=== PATIENT | male | born 1975 | race African-American/Black ===

== ENCOUNTER 2019-01-22 06:43 | Inpatient (IN) | payer OTHER ==
[~2019-01-22] VITALS: Ht 175.3 cm; Wt 97.1 kg
[2019-01-22] VITALS (12 sets, daily range): BP systolic 158–208; BP diastolic 119–153
[2019-01-22] MEDS ORDERED: ATORVASTATIN CA20 MG ORAL (06:51)
[2019-01-22] MEDS ORDERED: LISINOPRIL5 MG ORAL (06:51)
[2019-01-22] MEDS ORDERED: CARVEDILOL3.125 MG ORAL (06:51)
[2019-01-22] MEDS ORDERED: ASPIR 8181 MG ORAL (06:52)
[2019-01-22] MEDS ORDERED: FUROSEMIDE20 M1 ORAL (06:53)
--- NOTE | 2019-01-22 06:54 | NUR ---
ED Nurse Note: PT AMBULATED TO ED FROM HOME C/O OF SOB FOR 2 WEEKS PER PT HE HAS HISTORY OF CHF DENIES COPD AND ASTHMA. PER PT THESE SYMPTOMS OCCURED WHEN HE FIRST GOT DIAGNOSED WITH CHF. PT IS ON ROOM AIR 99%. ABLE TO SPEAK COMPLETE SENTENCE WITHOUT RUNNING OUT OF BREATH
--- NOTE | 2019-01-22 06:59 | Emergency Room Report ---
History of Present Illness General Chief Complaint: Upper Respiratory Illness Source: Patient Present Illness HPI Patient presents with complaints of shortness of breath Reports that he has been diagnosed with CHF and it feels fairly similar to that Patient has been on diuretics Denies any change in dosage patient also taking blood pressure medication Short of breath is worse with laying flat also with exertion Denies any swelling denies any chest pain denies any vomiting or diarrhea denies any recent travel Allergies: Coded Allergies: No Known Allergies (Unverified , 01/22/19) Patient History Past Medical History: see triage record Pertinent Family History: none Reviewed Nursing Documentation: PMH: Agreed; PSxH: Agreed Nursing Documentation-PM Past Medical History: No History, Except For Hx Hypertension: Yes Review of Systems All Other Systems: negative except mentioned in HPI Physical Exam Vital Signs Date Time Temp Pulse Resp B/P (MAP) Pulse Ox O2 Delivery O2 Flow Rate FiO2 01/22/19 06:44 97.9 108 16 190/151 98 Room Air Sp02 EP Interpretation: reviewed, normal General Appearance: no apparent distress Head: normocephalic, atraumatic Eyes: bilateral eye PERRL, bilateral eye EOMI ENT: hearing grossly normal, normal pharynx, TMs + canals normal, uvula midline Neck: full range of motion, supple, no meningismus, no bony tend Respiratory: no respiratory distress, no retraction, no accessory muscle use, crackles - Bilaterally Cardiovascular #1: normal peripheral pulses, regular rate, rhythm, no edema, no gallop, no JVD, no murmur Gastrointestinal: normal bowel sounds, non tender, soft, no mass, no organomegaly, non-distended, no guarding, no hernia, no pulsatile mass, no rebound Genitourinary: no CVA tenderness Musculoskeletal: normal inspection Neurologic: oriented x3, responsive, email campaign specialist III-XII nml as tested, motor strength/ tone normal, sensory intact Psychiatric: mood/affect normal Skin: normal color, no rash, warm/dry, palpation normal Lymphatic: normal inspection, no adenopathy Procedures Critical Care Time Critical Care Time 50 minutes secondary to concern for cardiac pathology, not including any procedural time Medical Decision Making Diagnostic Impression: Primary Impression: CHF (congestive heart failure) Additional Impression: Elevated troponin I level ER Course Patient is a fairly complex patient with multiple differential to consideration including but not limited to cardiac cardiopulmonary and vascular emergencies Patient's clinical exam is consistent with acute CHF Patient initiated on diuretics nitroglycerin patient's troponin is also elevated Patient also requiring acute hypertensive intervention Initial discussion is made regarding transfer however secondary to significant delay Patient was cleared for admission here A repeat troponin shows minimal decrease and does not appear to be increasing from previous And therefore patient is stable for further telemetry care Labs Test 01/22/19 07:03 01/22/19 07:23 01/22/19 10:05 White Blood Count 9.4 K/UL (4.8-10.8) Red Blood Count 5.29 M/UL (4.70-6.10) Hemoglobin 16.5 G/DL (14.2-18.0) Hematocrit 47.6 % (42.0-52.0) Mean Corpuscular Volume 90 FL (80-99) Mean Corpuscular Hemoglobin 31.1 PG (27.0-31.0) Mean Corpuscular Hemoglobin Concent 34.5 G/DL (32.0-36.0) Red Cell Distribution Width 13.1 % (11.6-14.8) Platelet Count 244 K/UL (150-450) Mean Platelet Volume 6.8 FL (6.5-10.1) Neutrophils (%) (Auto) 63.2 % (45.0-75.0) Lymphocytes (%) (Auto) 28.4 % (20.0-45.0) Monocytes (%) (Auto) 4.7 % (1.0-10.0) Eosinophils (%) (Auto) 2.3 % (0.0-3.0) Basophils (%) (Auto) 1.5 % (0.0-2.0) Sodium Level 139 MMOL/L (136-145) Potassium Level 4.4 MMOL/L (3.5-5.1) Chloride Level 104 MMOL/L (98-107) Carbon Dioxide Level 24 MMOL/L (21-32) Anion Gap 11 mmol/L (5-15) Blood Urea Nitrogen 26 mg/dL (7-18) Creatinine 2.0 MG/DL (0.55-1.30) Estimat Glomerular Filtration Rate 44.2 mL/min (>60) Glucose Level 115 MG/DL (74-106) Calcium Level 9.0 MG/DL (8.5-10.1) Total Bilirubin 0.8 MG/DL (0.2-1.0) Aspartate Amino Transf (AST/SGOT) 43 U/L (15-37) Alanine Aminotransferase (ALT/SGPT) 75 U/L (12-78) Alkaline Phosphatase 99 U/L (46-116) Total Creatine Kinase 177 U/L (26-308) Creatine Kinase MB 3.6 NG/ML (0.0-3.6) Creatine Kinase MB Relative Index 2.0 Troponin I 0.245 ng/mL (0.000-0.056) 0.209 ng/mL (0.000-0.056) Pro-B-Type Natriuretic Peptide 4404 pg/mL (0-125) Total Protein 6.7 G/DL (6.4-8.2) Albumin 3.3 G/DL (3.4-5.0) Globulin 3.4 g/dL Albumin/Globulin Ratio 1.0 (1.0-2.7) Lipase 151 U/L (73-393) Urine Opiates Screen Negative (NEGATIVE) Urine Barbiturates Screen Negative (NEGATIVE) Phencyclidine (PCP) Screen Negative (NEGATIVE) Urine Amphetamines Screen Negative (NEGATIVE) Urine Benzodiazepines Screen Negative (NEGATIVE) Urine Cocaine Screen Negative (NEGATIVE) Urine Marijuana (THC) Screen Positive (NEGATIVE) EKG Diagnostic Results Rate: normal Rhythm: other ST Segments: other - Nonspecific ST and T-wave changes Rhythm Strip Diag. Results EP Interpretation: yes Rate: 66 Rhythm: NSR, no PVC's, no ectopy Chest X-Ray Diagnostic Results Chest X-Ray Diagnostic Results : Chest X-Ray Ordered: Yes # of Views/Limited/Complete: 1 View Indication: Shortness of Breath EP Interpretation: Yes Interpretation: no consolidation, no effusion, no pneumothorax, other - Cardiomegaly, Pulmonary congestion congestion Impression: Other - Acute CHF Electronically Signed by: Jaspreet Edwards DO Last Vital Signs Date Time Temp Pulse Resp B/P (MAP) Pulse Ox O2 Delivery O2 Flow Rate FiO2 01/22/19 06:44 97.9 108 16 190/151 98 Room Air Status: improved Disposition: ADMITTED INPATIENT Condition: Serious Jaspreet Edwards DO Jan 22, 2019 06:59
[2019-01-22] MEDS ORDERED: Nitroglycerin 2% oint pkt TOPIC ONE (07:00)
--- NOTE | 2019-01-22 07:12 | NUR ---
ED Nurse Note: BLOOD SPECIMEN SENT TO LAB
--- NOTE | 2019-01-22 07:13 | NUR ---
HAND-OFF: Report given to ANANYA CHRISTIANSON.
--- NOTE | 2019-01-22 07:23 | NUR ---
ED Nurse Note: X-ray tech at bedside for imaging.
[2019-01-22 07:25] LABS: BASOPHILS % (AUTO) 1.5 % (0.0-2.0); EOSINOPHILS % (AUTO) 2.3 % (0.0-3.0); HEMATOCRIT 47.6 % (42.0-52.0); HEMOGLOBIN 16.5 G/DL (14.2-18.0); LYMPHOCYTES % (AUTO) 28.4 % (20.0-45.0); MEAN CORPUSCULAR VOLUME 90 FL (80-99); MONOCYTES % (AUTO) 4.7 % (1.0-10.0); NEUTROPHILS % (AUTO) 63.2 % (45.0-75.0); PLATELET COUNT 244 K/UL (150-450); RED BLOOD COUNT 5.29 M/UL (4.70-6.10); RED CELL DISTRIBUTION WIDTH 13.1 % (11.6-14.8); WHITE BLOOD COUNT 9.4 K/UL (4.8-10.8)
[2019-01-22 07:41] LABS: ANION GAP 11 mmol/L (5-15); BLOOD UREA NITROGEN 26 mg/dL (7-18); CARBON DIOXIDE 24 MMOL/L (21-32); CHLORIDE 104 MMOL/L (98-107); POTASSIUM 4.4 MMOL/L (3.5-5.1); SODIUM 139 MMOL/L (136-145)
[2019-01-22 07:53] LABS: ALANINE AMINOTRANSFERASE 75 U/L (12-78); ALBUMIN 3.3 G/DL (3.4-5.0); ALKALINE PHOSPHATASE 99 U/L (46-116); ASPARTATE AMINO TRANSFERASE 43 U/L (15-37); BILIRUBIN,TOTAL 0.8 MG/DL (0.2-1.0); CKMB 3.6 NG/ML (0.0-3.6); CREATINE KINASE 177 U/L (26-308)
--- NOTE | 2019-01-22 08:00 | Diagnostic Imaging Report ---
EXAM: XR Chest, 1 View CLINICAL HISTORY: SOB TECHNIQUE: Frontal view of the chest. COMPARISON: No relevant prior studies available. FINDINGS: Lungs: Slight prominence of the central lung markings. This may reflect mild congestion. Mild streaky density in the right lung base. Pleural space: No large layering effusion. No pneumothorax. Heart: Cardiovascular silhouette, mildly enlarged and accentuated by low lung volume. Mediastinum: Unremarkable. Bones/joints: Unremarkable. Vasculature: Mildly tortuous thoracic aorta. IMPRESSION: Mild cardiomegaly. Mild vascular congestion suspected. Mild right basilar atelectasis.
[2019-01-22] MEDS: Metoprolol 5mg/5ml Inj IVP SCH ×3 (08:58→09:42)
--- NOTE | 2019-01-22 10:08 | NUR ---
ED Nurse Note: Second Troponin drawn and sent to lab.
[2019-01-22] MEDS ORDERED: Morphine Sulfate 4mg/ml Inj (IV USE ONLY) IVP ONE (10:45)
--- NOTE | 2019-01-22 11:58 | NUR ---
ED Nurse Note: Notified Dr. Edwards regarding pt.'s bp of 167/134. Per Dr. Edwards, pt. is ok to go up for admission
--- NOTE | 2019-01-22 12:11 | NUR ---
ED Nurse Note: telephone report given to ANANYA Ornelas. transported pt. to Tele with housekeeper on attached for monitoring. All belongings were endorsed
--- NOTE | 2019-01-22 12:14 | NUR ---
NURSE NOTES: Pt admitted from ED via gurney with RN and networking technology instructor. Received report and inventory list from Jeyson HARE @ED at bedside. Pt AOX4 and walks steady. No skin breakdown noted. IV site on LAC 20G SL with patent intact. Gave pt floor orientation. Bed in lowest position locked. Call light in easy reach. No c/o pain. No signs of distress noted. Continent of both bladder and bowel. Will follow up with MD for admission order.
[2019-01-22] MEDS ORDERED: ATORVASTATIN CA40 MG ORAL (12:58)
[2019-01-22] MEDS ORDERED: CARVEDILOL6.25 MG ORAL (12:58)
[2019-01-22] MEDS ORDERED: LISINOPRIL20 MG ORAL (12:58)
[2019-01-22] MEDS ORDERED: FUROSEMIDE40 MG ORAL (12:58)
--- NOTE | 2019-01-22 12:58 | NUR ---
NURSE NOTES: Per pt, he couldn't remember the dosage or frequency of his medications but knows the medications he's taking - aspirin, atorvastatin, carvedilol, and lisinopril. Pt provided address and contact of [facility] pharmacy he goes to (on and - [phone]). RN spoke with Rachel pharmacist from [facility] who confirmed that pt is on aspirin 81 mg PO daily, atorvastatin 40 mg PO daily, carvedilol 6.25 mg PO BID with food, furosemide 40 mg PO every other day, and lisinopril 30 mg PO daily. RN will endorse to Dr. Lambert to obtain order to continue or discontinue the following meds.
--- NOTE | 2019-01-22 13:40 | NUR ---
NURSE NOTES: All admission order verified with Dr. Lambert.
[2019-01-22] MEDS ORDERED: Nitroglycerin Subl 0.4mg tab SL PRN (13:53)
--- NOTE | 2019-01-22 14:56 | NUR ---
CASE MANAGEMENT: INITIAL REVIEW 01/22/2019 43 YO M PRESENTED TO OUR ED FROM HOME CC: URI PMHx: HTN. SI:HYPERTENSIVE MALIGNANCY. ACUTE CHF. T 97.9 HR 108 RR 16 B/P 190/151 SATS 98% ON RA BUN 26 CR 2 GLU 115 AST 43 TROPONIN 0.245 AND 0.209 BNP 4404 U TOX (+THC) IS: LASIX IV X1 NITRO TOP X1 LOPRESSOR IV X1 MORPHINE IV X1 ZOFRAN IV X1 PATIENT TO BE DISCHARGED TO HOME ONCE MEDICALLY CLEARED. PLAN OF CARE: 2D ECHO CARDIAC DIET Addendum: 01/22/19 at 2038 by Mayelin Montgomery CM INTERQUAL MET
--- NOTE | 2019-01-22 15:35 | NUR ---
NURSE NOTES: Upon admission, pt's BP was 182/137, with HR of 97. Endorsed to Dr. Lambert, who ordered for clonidine 0.1 mg PO. Upon reassessment, pt's BP was 192/153 with pulse of 100. RN left message with cardio consult Dr. Dove for further orders. No new orders given. Will continue to monitor.
--- NOTE | 2019-01-22 16:09 | NUR ---
NURSE NOTES: Per Dr. Dove, start amlodine 5 mg PO daily, Hydrochlorothiazide 25 mg PO qid, clonidine 0.1 mg PO qid PRN for SBP above 160. Will carry out orders and monitor pt.
--- NOTE | 2019-01-22 16:40 | NUR ---
NURSE NOTES: Informed Dr. Dove of 2d echo result of 15% with mild left ventricular hypertrophy. Per Dr. Dove, d/c HCTZ and amlodipine and change to Carvedilol 3.125 mg BID and hydralazine 50 mg TID.
--- NOTE | 2019-01-22 17:00 | NUR ---
NURSE NOTES: Endorsed to Dr. Dove that pt is also scheduled to take metoprolol 50 mg PO q12 hr starting later tonight. Per Dr. Dove, d/c metoprolol.
[2019-01-22] MEDS: HydrALAZINE 50mg tab ORAL SCH (17:12)
--- NOTE | 2019-01-22 18:38 | NUR ---
NURSE NOTES: RN reassessed BP after Hydralazine administration - BP: 177/138, P:101. Clonidine 0.1mg PRN not scheduled until 8pm. Endorsed Dr. Dove no new orders given at this time.
--- NOTE | 2019-01-22 19:10 | NUR ---
HAND-OFF: Report given to Veronica Jaramillo RN. No acute s/s of distress.
--- NOTE | 2019-01-22 19:12 | NUR ---
NURSE NOTES: RECEIVED PT AT BEDSIDE. PT IS X4, ABLE TO MAKE NEEDS KNOWN. COMPLAINING OF HEAD PAIN. RN REPORTS HIGH BP >160 SYS THROUGH DAY. MD IS AWARE. IV SITE LAC 18G, ASYMOPTOMATIC. BED IS LOCKED IN LOWEST POSITION, SR X3, CALL [place] W/ IN REACH, BED ALARM ON. PT IS ABULATORY GAIT STEADY. WILL CONTINUE TO MONITOR AND FOLLOW W/ PLAN OF CARE.
[2019-01-22] MEDS: Heparin 5000 units/ml inj SUBQ SCH (20:12)
[2019-01-22] MEDS: Morphine Sulfate 2mg/ml Inj(IV/IM USE ONLY) IVP PRN (20:13)
[2019-01-22] MEDS ORDERED: Metoprolol Tartrate 50mg tab ORAL SCH (21:00)
--- NOTE | 2019-01-22 23:51 | Cardiology Progress Note ---
Assessment/Plan Assessment/Plan The patient is seen and examined, full consult note is dictated. Objective Last 24 Hour Vital Signs Date Time Temp Pulse Resp B/P (MAP) Pulse Ox O2 Delivery O2 Flow Rate FiO2 01/22/19 21:42 174/129 01/22/19 21:00 Room Air 01/22/19 20:11 80 176/80 01/22/19 20:00 99 01/22/19 20:00 98.2 105 18 174/129 (144) 97 01/22/19 18:22 97.8 101 18 177/133 (148) 96 01/22/19 17:12 187/147 01/22/19 17:10 100 187/147 (160) 01/22/19 16:32 100 192/153 01/22/19 16:00 98.5 100 19 192/153 (166) 98 01/22/19 15:35 99 01/22/19 14:20 176/134 01/22/19 14:17 98.0 175/134 (148) 01/22/19 13:09 Room Air 01/22/19 12:17 93 01/22/19 12:08 97.9 93 20 167/134 100 Room Air 01/22/19 11:56 97.9 93 20 167/134 100 Room Air 01/22/19 11:09 97.9 01/22/19 10:57 93 20 158/119 98 Room Air 01/22/19 10:41 172/121 01/22/19 09:43 97.9 94 20 169/135 98 Room Air 01/22/19 09:42 94 169/135 01/22/19 09:10 96 169/142 01/22/19 08:58 106 181/144 01/22/19 08:16 102 175/140 01/22/19 07:45 191/149 01/22/19 07:11 205/144 01/22/19 07:06 109 19 Room Air 01/22/19 07:06 97.9 109 19 208/144 99 Room Air 01/22/19 06:44 97.9 108 16 190/151 98 Room Air Laboratory Tests Test 01/22/19 07:03 01/22/19 07:23 01/22/19 10:05 White Blood Count 9.4 K/UL (4.8-10.8) Red Blood Count 5.29 M/UL (4.70-6.10) Hemoglobin 16.5 G/DL (14.2-18.0) Hematocrit 47.6 % (42.0-52.0) Mean Corpuscular Volume 90 FL (80-99) Mean Corpuscular Hemoglobin 31.1 PG (27.0-31.0) H Mean Corpuscular Hemoglobin Concent 34.5 G/DL (32.0-36.0) Red Cell Distribution Width 13.1 % (11.6-14.8) Platelet Count 244 K/UL (150-450) Mean Platelet Volume 6.8 FL (6.5-10.1) Neutrophils (%) (Auto) 63.2 % (45.0-75.0) Lymphocytes (%) (Auto) 28.4 % (20.0-45.0) Monocytes (%) (Auto) 4.7 % (1.0-10.0) Eosinophils (%) (Auto) 2.3 % (0.0-3.0) Basophils (%) (Auto) 1.5 % (0.0-2.0) Sodium Level 139 MMOL/L (136-145) Potassium Level 4.4 MMOL/L (3.5-5.1) Chloride Level 104 MMOL/L (98-107) Carbon Dioxide Level 24 MMOL/L (21-32) Anion Gap 11 mmol/L (5-15) Blood Urea Nitrogen 26 mg/dL (7-18) H Creatinine 2.0 MG/DL (0.55-1.30) H Estimat Glomerular Filtration Rate 44.2 mL/min (>60) Glucose Level 115 MG/DL (74-106) H Calcium Level 9.0 MG/DL (8.5-10.1) Total Bilirubin 0.8 MG/DL (0.2-1.0) Aspartate Amino Transf (AST/SGOT) 43 U/L (15-37) H Alanine Aminotransferase (ALT/SGPT) 75 U/L (12-78) Alkaline Phosphatase 99 U/L (46-116) Total Creatine Kinase 177 U/L (26-308) Creatine Kinase MB 3.6 NG/ML (0.0-3.6) Creatine Kinase MB Relative Index 2.0 Troponin I 0.245 ng/mL (0.000-0.056) 0.209 ng/mL (0.000-0.056) Pro-B-Type Natriuretic Peptide 4404 pg/mL (0-125) H Total Protein 6.7 G/DL (6.4-8.2) Albumin 3.3 G/DL (3.4-5.0) L Globulin 3.4 g/dL Albumin/Globulin Ratio 1.0 (1.0-2.7) Lipase 151 U/L (73-393) Urine Opiates Screen Negative (NEGATIVE) Urine Barbiturates Screen Negative (NEGATIVE) Phencyclidine (PCP) Screen Negative (NEGATIVE) Urine Amphetamines Screen Negative (NEGATIVE) Urine Benzodiazepines Screen Negative (NEGATIVE) Urine Cocaine Screen Negative (NEGATIVE) Urine Marijuana (THC) Screen Positive (NEGATIVE) H Renato Dove MD Jan 22, 2019 23:51
[2019-01-23] VITALS (7 sets, daily range): BP systolic 147–177; BP diastolic 113–134
--- NOTE | 2019-01-23 01:16 | NUR ---
NURSE NOTES: PAGED DR MARTINEZ REGARDING BP, AWAITING RESPONSE. PT 2000 VITAL SIGNS 174/129 105 HR; GAVE COREG 3.125, MORPHINE 1 MG, AND CLONIDINE 0.1 MG. 0000 VITAL SIGNS 177/123 HR 102; NO OTHER PRN MEDICATIONS AVAILABLE. PT IS ASYMPTOMATIC, SLEEPING IN BED. WILL FOLLOW UP. WILL CONTINUE TO MONITOR AND FOLLOW W/ PLAN OF CARE.
--- NOTE | 2019-01-23 01:45 | NUR ---
NURSE NOTES: SPOKE W/ DR. MARTINEZ REGARDING HIGH BP. ADDED MORE BP MEDS, AND INCREASED CORE. SEE EMAR. WILL CONTINUE TO MONITOR AND FOLLOW W/ PLAN OF CARE.
[2019-01-23] MEDS: Spironolactone 25mg tab ORAL SCH (02:22)
--- NOTE | 2019-01-23 06:45 | Consultation ---
DATE OF CONSULTATION: 01/22/2019 CARDIOLOGY CONSULTATION CONSULTING PHYSICIAN: Renato Dove M.D. REFERRING PHYSICIAN: Jc Lambert M.D. REASON FOR CONSULTATION: Management of acute heart failure. HISTORY OF PRESENT ILLNESS: The patient is a very unfortunate 43-year-old gentleman with newly diagnosed congestive heart failure, who presents to the hospital with a progressive worsening of shortness of breath despite being on diuretics and no change of his home medication. The patient has been placed on beta blockers, furosemide, and lisinopril in the outpatient setting. He was started on carvedilol, furosemide, and lisinopril in the outpatient setting. Apart from the heart failure, his cardiovascular history is significant for hypertension. At the time of arrival to the hospital, blood pressure was 190/151 mmHg and pulse of 108. The patient had a 2D echocardiography earlier today which revealed a global left ventricular hypokinesia with associated mild left ventricular enlargement and left ventricular ejection fraction of approximately 15%. The patient also showed elevated right atrial pressure around 15 mmHg as well as [id number] mitral regurgitation and right ventricular systolic pressure was measured at 30 mmHg. He also demonstrated moderate pulmonary hypertension. Upon arrival to the hospital, the patient underwent laboratory workup, which revealed elevation of troponin I level at 0.245 as well as a proBNP of 4404. Chest x-ray was significant for cardiomegaly and pulmonary vascular congestion. The patient was admitted to telemetry for further evaluation and management, acute heart failure, and accelerated hypertension emergency. Cardiology consultation was made at the request of Dr. Lambert to address both above conditions. PAST MEDICAL HISTORY: Congestive heart failure and hypertension. FAMILY HISTORY: No premature coronary artery disease in first-degree relatives. ALLERGIES: No known drug allergies. SOCIAL HISTORY: Denies any tobacco, alcohol, or illicit drug use. MEDICATIONS: List of medication includes lisinopril 30 mg p.o. daily, furosemide 40 mg p.o. every other day, carvedilol 6.25 mg q.12 h., atorvastatin 40 mg p.o. daily, aspirin 81 mg p.o. daily. REVIEW OF SYSTEMS: HEENT: Denies any headache, diplopia, or blurred vision. CONSTITUTIONAL: Denies any fever, chills, night sweats, or weight loss. CARDIOVASCULAR: Complains of shortness of breath with exertion. Denies any chest pain at this time. Denies any PND or orthopnea. No leg edema. PULMONARY: Denies any cough, wheezing, or hemoptysis. GASTROINTESTINAL: Denies any nausea, vomiting, diarrhea, constipation, abdominal pain, or GI bleed. GENITOURINARY: Denies any hematuria, dysuria, or incontinence. NEUROLOGIC: Denies any motor dysfunction, sensory deficit, or altered speech. PHYSICAL EXAMINATION: VITAL SIGNS: Blood pressure was 190/151, pulse of 108, respirations of 16, O2 saturation 98% on room air, and temperature 97.9 degrees Fahrenheit. GENERAL: The patient is a very unfortunate 43-year-old gentleman, in no apparent respiratory distress. HEENT: Atraumatic and normocephalic. Anicteric. Pupils are equal, round, and reactive to light and accommodation. Extraocular muscles are intact. NECK: JVP is less than 5 cm. No carotid bruit. Carotid upstroke is 2+ bilaterally. CARDIOVASCULAR: Normal S1, S2. Regular rate and rhythm. No murmurs, gallops, or rubs. PMI is at fourth intercostal space at the midclavicular line. LUNGS: Bibasilar crackles. Otherwise, no rhonchi. ABDOMEN: Soft, nontender, and nondistended. No hepatosplenomegaly. Positive bowel sounds. EXTREMITIES: No evidence of edema, clubbing, or cyanosis. LABORATORY FINDINGS: WBC was 9.4, hemoglobin of 16.5, hematocrit of 47.6%, platelet count is 244,000. Sodium 139, potassium is 4.4, chloride 104, bicarbonate 34, BUN of 26, creatinine 2.0, glucose is 115, troponin I is 0.245, and proBNP was 4404. Urine drug screen was positive for marijuana. ASSESSMENT AND PLAN: The patient is a very unfortunate 43-year-old gentleman, seen in Cardiology consultation. 1. Acute systolic congestive heart failure due to cardiomyopathy. We would like to start the patient on guideline-directed medical therapy. I am adding spironolactone 25 mg to the regimen. Carvedilol will be optimized to 6.25 mg b.i.d for better blood pressure control. In this hospitalization, we will continue with ELIZABETH inhibitor. However, in the outpatient setting, Entresto will be started. The patient will also benefit from diuretic therapy with Lasix, perhaps metolazone will be also added. 2. Hypertension emergency. The patient would require more excessive blood pressure management. At this point, we will continue with hydralazine, carvedilol, and furosemide. was also added. 3. Elevated right atrial pressure about 50 mmHg. This is most likely secondary to left heart failure. I would like to thank Dr. Lambert for allowing me to participate in the care of this patient. Renato Dove M.D. DR: MATHEUS JOB#: [id number] CC:
--- NOTE | 2019-01-23 07:00 | NUR ---
NURSE NOTES: Report received from ANANYA Martin. Pt AOX4 and walks steady. No skin breakdown noted. IV site on LAC 20G SL with patent intact. Bed in lowest position, locked, and side rails x2 up. Call light in easy reach. No c/o pain. No signs of distress noted. Continent of both bladder and bowel. Patient request medication to help with bowel movement. Will follow up with MD and continue to monitor blood pressure.
[2019-01-23] MEDS: HydrALAZINE 50mg tab ORAL SCH ×3 (08:21→17:18)
[2019-01-23] MEDS: Furosemide 40mg tab ORAL SCH (08:21)
[2019-01-23] MEDS: Heparin 5000 units/ml inj SUBQ SCH ×2 (08:28→20:38)
--- NOTE | 2019-01-23 09:36 | Consultation ---
Consult Note Assessment/Plan DICT # [id number] Edwar Fofana MD Jan 23, 2019 09:36
--- NOTE | 2019-01-23 12:42 | Cardiology Report ---
APPROVED REPORT EKG Measurement Heart [id number] Sinus tachycardia Possible Left atrial enlargement Septal infarct, age undetermined T wave abnormality, consider inferolateral ischemia Abnormal ECG
--- NOTE | 2019-01-23 13:58 | History & Physical ---
History and Physical History & Physicial seen and examined. Full Dictation completed. 147 PM Jc Lambert MD Jan 23, 2019 13:58
--- NOTE | 2019-01-23 13:59 | General Progress Note ---
Assessment/Plan Assessment/Plan 1- NSTEMI 2- Hypertensive emergency Plan: Cardiology and pulmonary notes reviewed. Subjective Allergies: Coded Allergies: No Known Allergies (Unverified , 01/22/19) Objective Last 24 Hour Vital Signs Date Time Temp Pulse Resp B/P (MAP) Pulse Ox O2 Delivery O2 Flow Rate FiO2 01/23/19 12:27 147/115 01/23/19 12:00 97.5 97 19 147/115 (126) 97 01/23/19 11:48 93 01/23/19 10:24 98.5 01/23/19 09:47 97 149/117 (128) 01/23/19 08:22 99 168/124 01/23/19 08:21 168/124 01/23/19 08:17 98.5 99 19 168/124 (139) 97 01/23/19 08:02 Room Air 01/23/19 07:40 105 01/23/19 05:21 170/134 01/23/19 04:00 97.0 101 18 170/134 (146) 96 01/23/19 04:00 101 01/23/19 00:00 102 01/23/19 00:00 97.5 102 19 177/123 (141) 92 01/22/19 21:42 174/129 01/22/19 21:00 Room Air 01/22/19 20:11 80 176/80 01/22/19 20:00 99 01/22/19 20:00 98.2 105 18 174/129 (144) 97 01/22/19 18:22 97.8 101 18 177/133 (148) 96 01/22/19 17:12 187/147 01/22/19 17:10 100 187/147 (160) 01/22/19 16:32 100 192/153 01/22/19 16:00 98.5 100 19 192/153 (166) 98 01/22/19 15:35 99 01/22/19 14:20 176/134 01/22/19 14:17 98.0 175/134 (148) Intake and Output 01/22/19 01/23/19 19:00 07:00 Intake Total 300 ml 480 ml Output Total 1 ml Balance 299 ml 480 ml Intake Oral 300 ml 480 ml Output Urine Total 1 ml # Voids 2 10 Height (Feet): 5 Height (Inches): 9.00 Weight (Pounds): 214 Jc Lambert MD Jan 23, 2019 13:59
[2019-01-23] MEDS: Docusate 100mg cap ORAL PRN ×2 (14:30→22:17)
--- NOTE | 2019-01-23 14:34 | Cardiology Report ---
APPROVED REPORT EXAM: Two-dimensional and M-mode echocardiogram with Doppler and color Doppler. INDICATION Congestive Heart Failure M-Mode DIMENSIONS IVSd1.6 (0.7-1.1cm)Left Atrium (MM)4.1 (1.6-4.0cm) LVDd6.2 (3.5-5.6cm)Aortic Root3.1 (2.0-3.7cm) PWd1.6 (0.7-1.1cm)Aortic Cusp Exc.1.9 (1.5-2.0cm) LVDs5.9 (2.5-4.0cm) PWs2.2 cm Global left ventricular hypokinesis. Mild left ventricular enlargement. Left ventricular ejection fraction estimated to be 15 %. Mild left ventricular hypertrophy. No evidence of pericardial effusion. Mild left atrial enlargement. Mild right ventricular enlargement. Right atrial chamber size is within normal limits. Focal aortic valve sclerosis with adequate cusp excursion. Mildly thickened mitral valve leaflets with normal excursion. Mild mitral annulus and aortic root calcification. Normal pulmonic valve structure. Normal tricuspid valve structure. IVC dilated at 2.8 cm without physiological collapse. A color flow and spectral Doppler study was performed and revealed: No aortic insufficiency. Mild to moderate mitral regurgitation. Left ventricular diastolic function could not be determined due to arrhythmia. Trace tricuspid regurgitation. Tricuspid systolic velocities suggests peak right ventricular systolic pressure of 30 mmHg. Moderate pulmonic regurgitation present.
--- NOTE | 2019-01-23 16:15 | Consultation ---
DATE OF CONSULTATION: 01/23/2019 PULMONARY CONSULTATION CONSULTING PHYSICIAN: Edwar Fofana M.D. REFERRING PHYSICIAN: Jc Lambert M.D. REASON FOR CONSULTATION: Shortness of breath. HISTORY OF PRESENT ILLNESS: The patient is a 43-year-old male with a history of cardiomyopathy with an ejection fraction of 15% on aspirin, atorvastatin, Coreg, Lasix, and lisinopril diagnosed one year ago at [facility] but never truly worked up, now presenting with several days of shortness of breath, dyspnea on exertion, and paroxysmal nocturnal dyspnea. No lower extremity edema. No cough, wheezing, or hemoptysis. No fevers or chills. No chest pain. He has been afebrile with stable vital signs since coming here, saturating well on room air, but he has evidence of hypertensive urgency/emergency, as well he has elevated troponins. He states that he was previously told that the etiology of his heart failure was secondary to ischemic disease, but per his report he has never had a catheterization. He denies any prior drug or significant alcohol use. Chest x-ray showed pulmonary vascular congestion and proBNP is elevated. The patient has been admitted to telemetry and seen by Cardiology. Echocardiogram was done and showed global LV hypokinesis with an ejection fraction of 15%, mild LVH, dilated IVC, and PA pressure of 30. His creatinine is 2, it is unclear what his baseline. PAST MEDICAL HISTORY: 1. Cardiomyopathy/congestive heart failure, etiology unknown. 2. Hypertension. PAST SURGICAL HISTORY: None. ALLERGIES: No known drug allergies. MEDICATIONS: Prior to admission medications reviewed, current medications reviewed. SOCIAL HISTORY: He denies tobacco use. He does smoke marijuana. Denies other drug or alcohol use. FAMILY HISTORY: Noncontributory. REVIEW OF SYSTEMS: Negative other than history of present illness. PHYSICAL EXAMINATION: VITAL SIGNS: Temperature 98.5, pulse 99, blood pressure 168/124, respiratory rate 19, saturating 97% on room air. GENERAL: He is a well-developed, well-nourished male, in no acute distress. Awake, alert, and oriented x3. HEENT: Normocephalic and atraumatic. Oropharynx is clear with moist mucous membranes. NECK: Supple without lymphadenopathy, 8 cm JVD noted. CHEST: Clear with bibasilar rales. HEART: Regular rate and rhythm. ABDOMEN: Soft, nontender, and nondistended. EXTREMITIES: No cyanosis, clubbing, or edema. LABORATORY AND DIAGNOSTIC DATA: Sodium 139, potassium 4.4, chloride 104, bicarb 24, BUN 26, creatinine 2, glucose 115, calcium 9, total bilirubin 0.8, AST 43, ALT 75, alkaline phosphatase 99. CK 177, troponin 0.24, 0.20. BNP 4404. Total protein 6.7 and albumin 3.3. Toxicology screen positive for marijuana. Chest x-ray, pulmonary vascular congestion and edema. ASSESSMENT: The patient is a 43-year-old male with a history of CHF and cardiomyopathy of unknown etiology, presenting with acute decompensated heart failure and shortness of breath, as well as hypertensive urgency/emergency. PROBLEM LIST: 1. Congestive heart failure with marked systolic dysfunction (15%), admitted with acute decompensated heart failure. 2. Cardiomyopathy of unknown etiology. 3. Elevated cardiac biomarkers. 4. Hypertension, here with hypertensive urgency. 5. Abnormal creatinine, unclear if this is JOSE MARTIN or or CKD. TREATMENT PLAN: 1. Optimize pulmonary hygiene/mobilize as tolerated. 2. P.r.n. O2. 3. Monitor volumes and renal function, diuresis per Cardiology, would consider IV Lasix. 4. Heart failure regimen per Cardiology. 5. Monitor renal function. 6. Consider transfer to Heart failure Center. 7. DVT prophylaxis, heparin subcutaneous. Edwar Fofana M.D. DR: Ruby JOB#: [id number] CC:
--- NOTE | 2019-01-23 19:30 | NUR ---
CASE MANAGEMENT: REVIEW SI: NSTEMI . CHF 2DECHO 01/22 LEFT VENTRICULAR EJECTION FRACTION 15 % T 97.5 HR 99 RR 19 BP 153/118 SAT 97% ROOM AIR IS: LASIX PO Q ALDACTONE PO QD NITRO SQ PRN TELEMETRY UNIT STATUS DCP: PATIENT IS FROM HOME
--- NOTE | 2019-01-23 19:34 | NUR ---
HAND-OFF: Report given to ANANYA Joe.
--- NOTE | 2019-01-23 19:36 | NUR ---
NURSE NOTES: Received report from ANANYA Meyers. Patient in bed asleep showing no signs of acute distress. Respiration even and non labored on room air. No SOB noted. IV line patent and intact. Kulkarni cath patent, draining and intact. GT patent and intact with 0 residual. Bed in lowest position. Bed alarm on. Side rails up x3. All needs attended and met. Will continue plan of care. Addendum: 01/23/19 at 2003 by ZHANE CANSECO RN INCORRECT ENTRY. DIFFERENT PATIENT
--- NOTE | 2019-01-23 19:40 | NUR ---
NURSE NOTES: Received report from ANANYA Landis. Patient in bed awake showing no signs of acute distress. Respiration even and non labored on room air. No SOB noted. IV line patent and intact. Bed in lowest position. All needs attended and met. Will continue plan of care.
[2019-01-23] MEDS: Atorvastatin 20mg tab ORAL SCH (20:37)
[2019-01-23] MEDS: Morphine Sulfate 2mg/ml Inj(IV/IM USE ONLY) IVP PRN (22:18)
--- NOTE | 2019-01-23 22:45 | History and Physical Report ---
DATE OF ADMISSION: 01/22/2019 SOURCE OF INFORMATION: Patient and EMR. HISTORY OF PRESENT ILLNESS: The patient is a 43-year-old male with history of hypertension, who presented with the headache and shortness of breath. The patient reported to have been diagnosed with CHF. At the time of admission, the patient denies any nausea, vomiting, diarrhea, or constipation. No vomitus. REVIEW OF SYSTEMS: All 14 elements of review of systems reviewed. Pertinent positive and negative as above. PAST SURGICAL HISTORY: Denies. ALLERGIES: NKDA. SOCIAL HISTORY: The patient gives history of illicit drug abuse and tobacco use. Denies history of alcohol abuse. MEDICATIONS: Current hospital medications including, but not limited to aspirin, atorvastatin, Coreg, Lasix, lisinopril. FAMILY HISTORY: Reviewed and noncontributory. PHYSICAL EXAMINATION: VITAL SIGNS: Blood pressure 190/150, pulse rate 100, respiratory rate 18, and temperature 98.2. HEAD AND NECK: Atraumatic and normocephalic. CHEST: Clear to auscultation. HEART: S1, S2. Regular rate and rhythm. ABDOMEN: Soft. No organomegaly. MUSCULOSKELETAL: No gross focal motor deficits. NEUROLOGIC: Awake, alert, and oriented x3. LABORATORY DATA: Labs dated 01/22/2019 shows WBC 9.4, hemoglobin 16.5, platelets 244,000. Sodium 139, potassium 4.4, BUN 26, and creatinine 2. Troponin 0.2. ASSESSMENT AND PLAN: 1. Acute coronary syndrome. 2. Congestive heart failure exacerbation. 3. Substance abuse, positive for marijuana. 4. GI and DVT prophylaxis. PLAN OF CARE: Cardiology consulted. I agreed with the telemetry admission. We will optimize medications , A 2D echo will be ordered. Jc Lambert M.D. DR: MI JOB#: [id number] CC: ÓSCAR
--- NOTE | 2019-01-23 23:56 | Cardiology Progress Note ---
Assessment/Plan Assessment/Plan 1. Acute systolic congestive heart failure due to cardiomyopathy, continue guideline-directed medical therapy, require right and left heart catheterization. 2. Elevated troponin I level likely due to myocardial necrosis associated with cardiomyopathy 3. Hypertension emergency, continue hydralazine, carvedilol, and furosemide. 4. Elevated right atrial pressure about 50 mmHg, likely secondary to left heart failure. Subjective Subjective Sinus rhythm at rate of 98. Objective Last 24 Hour Vital Signs Date Time Temp Pulse Resp B/P (MAP) Pulse Ox O2 Delivery O2 Flow Rate FiO2 01/23/19 21:00 Room Air 01/23/19 20:36 110 158/113 01/23/19 20:00 102 01/23/19 20:00 98.6 110 20 158/113 (128) 99 01/23/19 17:18 153/118 01/23/19 16:03 97.6 99 19 153/118 (130) 97 01/23/19 15:38 95 01/23/19 12:27 147/115 01/23/19 12:00 97.5 97 19 147/115 (126) 97 01/23/19 11:48 93 01/23/19 10:24 98.5 01/23/19 09:47 97 149/117 (128) 01/23/19 08:22 99 168/124 01/23/19 08:21 168/124 01/23/19 08:17 98.5 99 19 168/124 (139) 97 01/23/19 08:02 Room Air 01/23/19 07:40 105 01/23/19 05:21 170/134 01/23/19 04:00 97.0 101 18 170/134 (146) 96 01/23/19 04:00 101 01/23/19 00:00 102 01/23/19 00:00 97.5 102 19 177/123 (141) 92 Respiratory/Chest: crackles/rales Intake and Output 01/22/19 01/23/19 18:59 06:59 Intake Total 300 ml 480 ml Output Total 1 ml Balance 299 ml 480 ml Intake Oral 300 ml 480 ml Output Urine Total 1 ml # Voids 2 10 2D Echo: LVEF 15%, global LVHK, Hi RAP, RVSP 30 mmhg, Mild-Mod MR Objective HEENT: Atraumatic and normocephalic. Anicteric. Pupils are equal, round, and reactive to light and accommodation. Extraocular muscles are intact. NECK: JVP is less than 5 cm. No carotid bruit. Carotid upstroke is 2+ bilaterally. CARDIOVASCULAR: Normal S1, S2. Regular rate and rhythm. No murmurs, gallops, or rubs. PMI is at fourth intercostal space at the midclavicular line. LUNGS: Bibasilar crackles. Otherwise, no rhonchi. ABDOMEN: Soft, nontender, and nondistended. No hepatosplenomegaly. Positive bowel sounds. EXTREMITIES: No evidence of edema, clubbing, or cyanosis. Renato Dove MD Jan 23, 2019 23:56
[2019-01-24] VITALS (7 sets, daily range): BP systolic 145–176; BP diastolic 110–129
--- NOTE | 2019-01-24 07:05 | NUR ---
HAND-OFF: Report given to ANANYA Landis. Patient sitting in bed awake showing no signs of acute distress.
--- NOTE | 2019-01-24 07:12 | NUR ---
NURSE NOTES: Received report from ANANYA Joe. Patient is in bed, awake, and showing no signs of acute distress. Respiration even and non labored on room air. No SOB noted. IV line patent and intact. Bed in lowest position, locked, and side rails x2 up. Will continue plan of care.
--- NOTE | 2019-01-24 07:45 | NUR ---
CASE MANAGEMENT:REVIEW 01/24/19 SI: NSTEMI. CHF 98.6 102 20 168/129 99% ON RA LAST TROPONIN(+) 0.209 IS: LASIX PO QD PROTONIX PO QD COREG PO Q12 ALDACTONE PO QD HEPARIN SQ Q12 CLONIDINE PO Q6HRS PRN HYDRALAZINE PO TID IV MORPHINE Q4HRS PRN : TELEMETRY STATUS DCP HOME
[2019-01-24] MEDS: Furosemide 40mg tab ORAL SCH (08:05)
[2019-01-24] MEDS: Spironolactone 25mg tab ORAL SCH (08:05)
[2019-01-24] MEDS: HydrALAZINE 50mg tab ORAL SCH ×3 (08:05→17:28)
[2019-01-24] MEDS: Docusate 100mg cap ORAL PRN (08:08)
[2019-01-24] MEDS: Heparin 5000 units/ml inj SUBQ SCH ×2 (08:13→20:52)
--- NOTE | 2019-01-24 11:05 | Pulmonology Progress Note ---
Assessment/Plan Problems: (1) CHF (congestive heart failure) (2) Elevated troponin I level (3) Hypertensive urgency, malignant Assessment/Plan ASSESSMENT: The patient is a 43-year-old male with a history of CHF and cardiomyopathy of unknown etiology, presenting with acute decompensated heart failure and shortness of breath, as well as hypertensive urgency/emergency. PROBLEM LIST: 1. Congestive heart failure with marked systolic dysfunction (15%), admitted with acute decompensated heart failure. 2. Cardiomyopathy of unknown etiology. 3. Elevated cardiac biomarkers. 4. Hypertension, here with hypertensive urgency. 5. Abnormal creatinine, unclear if this is JOSE MARTIN or or CKD. TREATMENT PLAN: 1. Optimize pulmonary hygiene/mobilize as tolerated. 2. P.r.n. O2. 3. Monitor volumes and renal function, diuresis per Cardiology, would consider IV Lasix. 4. Heart failure regimen per Cardiology. D/W Dr. Dove, plan to transfer for cath 5. Monitor renal function. 6. Consider transfer to Heart failure Center. 7. DVT prophylaxis, heparin subcutaneous. Subjective Allergies: Coded Allergies: No Known Allergies (Unverified , 01/22/19) Subjective AFVSS on RA No cough no SOB no CP Wants to go home Objective Last 24 Hour Vital Signs Date Time Temp Pulse Resp B/P (MAP) Pulse Ox O2 Delivery O2 Flow Rate FiO2 01/24/19 09:00 Room Air 01/24/19 08:05 100 159/119 01/24/19 08:05 159/119 01/24/19 08:00 97.7 95 18 159/119 (132) 99 01/24/19 07:40 98 01/24/19 04:32 168/129 01/24/19 04:00 90 01/24/19 04:00 98.6 102 20 168/129 (142) 99 01/24/19 00:00 98.3 103 20 150/120 (130) 95 01/24/19 00:00 90 01/23/19 21:00 Room Air 01/23/19 20:36 110 158/113 01/23/19 20:00 102 01/23/19 20:00 98.6 110 20 158/113 (128) 99 01/23/19 17:18 153/118 01/23/19 16:03 97.6 99 19 153/118 (130) 97 01/23/19 15:38 95 01/23/19 12:27 147/115 01/23/19 12:00 97.5 97 19 147/115 (126) 97 01/23/19 11:48 93 Intake and Output 01/23/19 01/24/19 19:00 07:00 Intake Total 480 ml Output Total 750 ml 800 ml Balance -270 ml -800 ml Intake Oral 480 ml Output Urine Total 750 ml 800 ml General Appearance: WD/WN, no acute distress HEENT: normocephalic, atraumatic, anicteric, mucous membranes moist Respiratory/Chest: chest wall non-tender, lungs clear, normal breath sounds, no respiratory distress, no accessory muscle use Cardiovascular: normal peripheral pulses, normal rate, regular rhythm Abdomen: normal bowel sounds, soft, non tender, no organomegaly, non distended , no mass Extremities: no cyanosis, no clubbing, no edema Current Medications Medications (Trade) Dose Ordered Sig/Claudia Route PRN Reason Start Time Stop Time Status Last Admin Dose Admin Acetaminophen (Tylenol) 650 mg Q6H PRN ORAL HEADACHE 01/22/19 13:52 02/21/19 13:51 01/24/19 04:32 Atorvastatin Calcium (Lipitor) 20 mg BEDTIME ORAL 01/23/19 21:00 02/22/19 20:59 01/23/19 20:37 Carvedilol (Coreg) 6.25 mg EVERY 12 HOURS ORAL 01/24/19 21:00 02/22/19 20:59 Clonidine HCl (Catapres Tab) 0.1 mg Q6H PRN ORAL For High Blood Pressure 01/22/19 19:53 02/21/19 13:52 01/24/19 04:32 Docusate Sodium (Colace) 100 mg TIDPRN PRN ORAL Constipation 01/23/19 13:39 02/22/19 13:38 01/24/19 08:08 Furosemide (Lasix) 40 mg DAILY ORAL 01/23/19 09:00 02/22/19 08:59 01/24/19 08:05 Heparin Sodium (Porcine) (Heparin 5000 units/ml) 5,000 units EVERY 12 HOURS SUBQ 01/22/19 21:00 02/21/19 20:59 01/24/19 08:13 Hydralazine HCl (Apresoline) 50 mg TID ORAL 01/22/19 18:00 02/21/19 17:59 01/24/19 08:05 Morphine Sulfate (Morphine Sulfate) 1 mg Q4H PRN IVP Prn Chest Pain 01/22/19 13:52 01/29/19 13:51 01/23/19 22:18 Nitroglycerin (Ntg) 0.4 mg Q5MIN X 3 DOSES PRN SL Prn Chest Pain 01/22/19 13:53 02/21/19 13:52 Pantoprazole (Protonix) 40 mg DAILY ORAL 01/23/19 09:00 02/22/19 08:59 01/24/19 08:05 Spironolactone (Aldactone) 25 mg DAILY ORAL 01/23/19 02:00 02/22/19 01:59 01/24/19 08:05 Edwar Fofana MD Jan 24, 2019 11:05
[2019-01-24 11:35] LABS: ANION GAP 6 mmol/L (5-15); BLOOD UREA NITROGEN 27 mg/dL (7-18); CALCIUM 9.2 MG/DL (8.5-10.1); CARBON DIOXIDE 32 MMOL/L (21-32); CHLORIDE 101 MMOL/L (98-107); CREATININE 2.2 MG/DL (0.55-1.30); POTASSIUM 4.4 MMOL/L (3.5-5.1); SODIUM 139 MMOL/L (136-145)
[2019-01-24 11:40] LABS: BASOPHILS % (AUTO) 1.8 % (0.0-2.0); EOSINOPHILS % (AUTO) 3.6 % (0.0-3.0); HEMATOCRIT 49.1 % (42.0-52.0); HEMOGLOBIN 16.6 G/DL (14.2-18.0); LYMPHOCYTES % (AUTO) 30.9 % (20.0-45.0); MEAN CORPUSCULAR VOLUME 90 FL (80-99); MONOCYTES % (AUTO) 10.7 % (1.0-10.0); NEUTROPHILS % (AUTO) 52.9 % (45.0-75.0); PLATELET COUNT 267 K/UL (150-450); RED BLOOD COUNT 5.46 M/UL (4.70-6.10); RED CELL DISTRIBUTION WIDTH 13.4 % (11.6-14.8); WHITE BLOOD COUNT 9.3 K/UL (4.8-10.8)
--- NOTE | 2019-01-24 13:34 | NUR ---
*-* INSURANCE *-* ALL CLINICALS AND REVIEWS HAVE BEEN FAXED TO: PATRICIA JOYNER:IMER P- [phone] - [phone]
--- NOTE | 2019-01-24 14:50 | NUR ---
TRANSFER UPDATE CLINICALS HAVE BEEN FAXED TO [facility] FOR HEART CATH PER DR MARTINEZ'S REQUEST REVIEW ENGINEER HAS MADE MULTIPLE ATTEMPTS TO GET IN TOUCH WITH A REVIEW ENGINEER AT [facility] Addendum: 01/24/19 at 1616 by LEV MILLERN CLINICALS FAXED TO [employer] AT [facility] T: [phone] F: [phone] ATTEMPTED TO CALL [facility] SEVERAL TIMES BUT LINE SONDRA CALLED [facility] AND LEFT [facility] FOR [facility] SUSANA T: [phone] F: [phone] WE NEED AUTHORIZATION FOR TRANSFER TO HIGHER LEVEL OF CARE ~ CARDIAC CATH
--- NOTE | 2019-01-24 16:11 | General Progress Note ---
Assessment/Plan Assessment/Plan PHYSICAL EXAMINATION: VITAL SIGNS: Blood pressure 190/150, pulse rate 100, respiratory rate 18, and temperature 98.2. S: I am doing ok O: appears comfortable, no sob, no cp HEAD AND NECK: Atraumatic and normocephalic. CHEST: Clear to auscultation. HEART: S1, S2. Regular rate and rhythm. ABDOMEN: Soft. No organomegaly. MUSCULOSKELETAL: No gross focal motor deficits. NEUROLOGIC: Awake, alert, and oriented x3. Echo: from today is reviewed ASSESSMENT AND PLAN: 1. Acute coronary syndrome. 2. Congestive heart failure exacerbation. 3. PAH- Moderate 3. Substance abuse, positive for marijuana. 4. GI and DVT prophylaxis. Plan: Cardiology and pulmonary notes reviewed. Subjective Allergies: Coded Allergies: No Known Allergies (Unverified , 01/22/19) Objective Last 24 Hour Vital Signs Date Time Temp Pulse Resp B/P (MAP) Pulse Ox O2 Delivery O2 Flow Rate FiO2 01/24/19 13:25 145/113 01/24/19 13:24 94 145/113 (124) 01/24/19 11:40 103 01/24/19 11:36 176/124 01/24/19 11:31 97.3 105 16 176/124 (141) 98 01/24/19 09:00 Room Air 01/24/19 08:05 100 159/119 01/24/19 08:05 159/119 01/24/19 08:00 97.7 95 18 159/119 (132) 99 01/24/19 07:40 98 01/24/19 04:32 168/129 01/24/19 04:00 90 01/24/19 04:00 98.6 102 20 168/129 (142) 99 01/24/19 00:00 98.3 103 20 150/120 (130) 95 01/24/19 00:00 90 01/23/19 21:00 Room Air 01/23/19 20:36 110 158/113 01/23/19 20:00 102 01/23/19 20:00 98.6 110 20 158/113 (128) 99 01/23/19 17:18 153/118 Intake and Output 01/23/19 01/24/19 19:00 07:00 Intake Total 480 ml Output Total 750 ml 800 ml Balance -270 ml -800 ml Intake Oral 480 ml Output Urine Total 750 ml 800 ml Laboratory Tests 01/24/19 11:10: White Blood Count 9.3, Red Blood Count 5.46, Hemoglobin 16.6, Hematocrit 49.1, Mean Corpuscular Volume 90, Mean Corpuscular Hemoglobin 30.5, Mean Corpuscular Hemoglobin Concent 33.9, Red Cell Distribution Width 13.4, Platelet Count 267, Mean Platelet Volume 7.1, Neutrophils (%) (Auto) 52.9, Lymphocytes (%) (Auto) 30.9, Monocytes (%) (Auto) 10.7H, Eosinophils (%) (Auto) 3.6H, Basophils (%) ( Auto) 1.8, Sodium Level 139, Potassium Level 4.4, Chloride Level 101, Carbon Dioxide Level 32, Anion Gap 6, Blood Urea Nitrogen 27H, Creatinine 2.2H, Estimat Glomerular Filtration Rate 39.6, Glucose Level 108H, Calcium Level 9.2 Height (Feet): 5 Height (Inches): 9.00 Weight (Pounds): 214 Jc Lambert MD Jan 24, 2019 16:11
--- NOTE | 2019-01-24 16:58 | NUR ---
DISCHARGE/TRANSFER: NOTE F/U CALL PLACED TO [facility] MANAGER MONITORING. [place] SPOKE TO RITU [employer]LECTRONIC [employer]GAN MECHANIC. RITU STATED THAT SHE WILL F/U AND CALL ME BACK WITH A ROOM. CM WILL F/U.
--- NOTE | 2019-01-24 17:54 | NUR ---
TRANSFER UPDATE: PLEASE READ PATIENT TO BE TRANSFERRED TO [facility] [address] [facility] [address] T: [phone]>>> ASK FOR CHARGE NURSE>>> PROVIDE REPORT [facility] ETA 2029 FOR CARDIAC CATH TRANSFER REPORT TO BE PROVIDED TO NURSING Addendum: 01/24/19 at 1828 by Mayelin Montgomery CM ACLS TRANSPORT TRANSFER REPORT PROVIDED TO ANANYA
--- NOTE | 2019-01-24 18:47 | NUR ---
NURSE NOTES: Gave report to ANANYA Pratt @ [facility] phone number.
--- NOTE | 2019-01-24 19:51 | NUR ---
HAND-OFF: Report given to ANANYA Joe. Belonging checklist done. Transfer form done. DC paperwork done. Transfer papers and CD in packet. Medication reconcilation being completed by Dr. Dove (endorsed). ETA is 8:30pm. Dr. Dove also saw patient. Patient is breathing unlabored and denies pain at this time.
--- NOTE | 2019-01-24 20:24 | Cardiology Progress Note ---
Assessment/Plan Assessment/Plan 1. Acute systolic congestive heart failure due to cardiomyopathy, continue guideline-directed medical therapy, got accepted by [facility] for right and left heart catheterization. 2. Elevated troponin I level likely due to myocardial necrosis associated with cardiomyopathy, however ischemic heart disease needs to be ruled out. Will proceed with C/coronary angiography once he arrives in [facility]. 3. Hypertension emergency, up-titrate hydralazine and carvedilol, continue furosemide and aldactone. 4. Elevated intracardiac filling pressure. Subjective Subjective Sinus rhythm at rate of 99. Objective Last 24 Hour Vital Signs Date Time Temp Pulse Resp B/P (MAP) Pulse Ox O2 Delivery O2 Flow Rate FiO2 01/24/19 17:28 152/110 01/24/19 16:01 99 01/24/19 16:00 97.4 94 18 152/110 (124) 97 01/24/19 13:25 145/113 01/24/19 13:24 94 145/113 (124) 01/24/19 11:40 103 01/24/19 11:36 176/124 01/24/19 11:31 97.3 105 16 176/124 (141) 98 01/24/19 09:00 Room Air 01/24/19 08:05 100 159/119 01/24/19 08:05 159/119 01/24/19 08:00 97.7 95 18 159/119 (132) 99 01/24/19 07:40 98 01/24/19 04:32 168/129 01/24/19 04:00 90 01/24/19 04:00 98.6 102 20 168/129 (142) 99 01/24/19 00:00 98.3 103 20 150/120 (130) 95 01/24/19 00:00 90 01/23/19 21:00 Room Air 01/23/19 20:36 110 158/113 Intake and Output 01/23/19 01/24/19 19:00 07:00 Intake Total 480 ml Output Total 750 ml 800 ml Balance -270 ml -800 ml Intake Oral 480 ml Output Urine Total 750 ml 800 ml 2D Echo: LVEF 15%, global LVHK, Hi RAP, RVSP 30 mmhg, Mild-Mod MR Laboratory Tests Test 01/24/19 11:10 White Blood Count 9.3 K/UL (4.8-10.8) Red Blood Count 5.46 M/UL (4.70-6.10) Hemoglobin 16.6 G/DL (14.2-18.0) Hematocrit 49.1 % (42.0-52.0) Mean Corpuscular Volume 90 FL (80-99) Mean Corpuscular Hemoglobin 30.5 PG (27.0-31.0) Mean Corpuscular Hemoglobin Concent 33.9 G/DL (32.0-36.0) Red Cell Distribution Width 13.4 % (11.6-14.8) Platelet Count 267 K/UL (150-450) Mean Platelet Volume 7.1 FL (6.5-10.1) Neutrophils (%) (Auto) 52.9 % (45.0-75.0) Lymphocytes (%) (Auto) 30.9 % (20.0-45.0) Monocytes (%) (Auto) 10.7 % (1.0-10.0) H Eosinophils (%) (Auto) 3.6 % (0.0-3.0) H Basophils (%) (Auto) 1.8 % (0.0-2.0) Sodium Level 139 MMOL/L (136-145) Potassium Level 4.4 MMOL/L (3.5-5.1) Chloride Level 101 MMOL/L (98-107) Carbon Dioxide Level 32 MMOL/L (21-32) Anion Gap 6 mmol/L (5-15) Blood Urea Nitrogen 27 mg/dL (7-18) H Creatinine 2.2 MG/DL (0.55-1.30) H Estimat Glomerular Filtration Rate 39.6 mL/min (>60) Glucose Level 108 MG/DL (74-106) H Calcium Level 9.2 MG/DL (8.5-10.1) Objective HEENT: Atraumatic and normocephalic. Anicteric. Pupils are equal, round, and reactive to light and accommodation. Extraocular muscles are intact. NECK: JVP is less than 5 cm. No carotid bruit. Carotid upstroke is 2+ bilaterally. CARDIOVASCULAR: Normal S1, S2. Regular rate and rhythm. No murmurs, gallops, or rubs. PMI is at fourth intercostal space at the midclavicular line. LUNGS: Bibasilar crackles. Otherwise, no rhonchi. ABDOMEN: Soft, nontender, and nondistended. No hepatosplenomegaly. Positive bowel sounds. EXTREMITIES: No evidence of edema, clubbing, or cyanosis. Renato Dove MD Jan 24, 2019 20:24
[2019-01-24] MEDS ORDERED: HydrALAZINE 50mg tab ORAL SCH (20:45)
[2019-01-24] MEDS: Atorvastatin 20mg tab ORAL SCH (20:50)
[2019-01-24] MEDS ORDERED: Carvedilol 12.5mg tab ORAL SCH (21:00)
[2019-01-24] MEDS ORDERED: Carvedilol 6.25mg Tab ORAL SCH (21:00)
--- NOTE | 2019-01-24 21:34 | NUR ---
NURSE NOTES: Patient picked up by [facility] ambulance at 2114. Patient in stable condition. No acute distress noted. Previous IV was DC'd from AC, but escort nurse request patient to have IV for safety reason. New IV done at left FA 20g, patent and intact. alarm security or surveillance monitor removed. All needs attended and met. Patient is stable.
[2019-01-25] MEDS ORDERED: HydrALAZINE 50mg tab ORAL SCH (09:00)
--- NOTE | 2019-01-25 13:43 | NUR ---
*-* INSURANCE *-* ALL CLINICALS AND REVIEWS HAVE BEEN FAXED TO: PATRICIA JOYNER:IMER P- [phone] - [phone]
--- NOTE | 2019-01-25 14:45 | Discharge Summary ---
Discharge Summary Discharge Summary _ DATE OF ADMISSION: 01/22/2019 DATE OF DISCHARGE: 01/24/2019 DISCHARGED BY: Dr. Lambert REASON FOR ADMISSION: 43 years old male with past medical history of hypertension, presented with shortness of breath and headaches. Shortness of breath reported to be worse with lying flat. Patient reported that he was diagnosed in the past with congestive heart failure and was on diuretic. . He denied chest pain . Patient denied nausea ,vomiting ,diarrhea, constipation. He denied recent travel . Upon evaluation vital signs revealed tachycardia and significantly elevated blood pressure 190/151. Laboratory workup revealed no leukocytosis , stable hemoglobin and hematocrit. Stable renal parameters and electrolytes. BUN 26 , creatinine 2.0. AST 43, ALT 75 ,CK 177 . Troponin elevated- 0.245, proBNP -4404 . EKG revealed sinus tachycardia no acute ischemic changes Urine toxicology screen was positive for marijuana. Chest x-ray demonstrated mild cardiomegaly with mild vascular congestion and mild right basilar atelectasis . In emergency department patient started on diuretic and nitroglycerin. Repeated troponin was at the same range 0.209 Patient admitted to telemetry floor for further management. CONSULTANTS: arabic translator Dr. Dove pulmonary [facility] COURSE: Patient admitted to telemetry floor. Echocardiogram revealed global left ventricular hypokinesis with left ventricular ejection fraction of 15. No evidence of pericardial effusion. Mild left ventricular hypertrophy. Mild to moderate mitral regurgitation Right ventricular systolic pressure 30. Moderate pulmonic regurgitation. Per arabic translator patient had acute systolic congestive heart failure due to cardiomyopathy. Guideline directed medical therapy was continued Serial troponin were minimally elevated , however levels were flat and pattern was not consistent with acute coronary syndrome. EKG revealed no acute ischemic changes. Per arabic translator , elevated troponin was likely due to myocardial necrosis , associated with cardiomyopathy , however ischemic heart disease needs to be rule out. Patient required transfer to tertiary facility for left heart catheterization and coronary angiogram. Hypertensive emergency on admission was improving with current management. Patient was continued on beta-crissy, hydralazine and diuresis with Lasix and Aldactone. Corporate Claims Examiner followed. Pulmonary hygiene was optimized. Supplemental oxygen provided to keep pulse oximetry above 90%. Pulmonary toilet was on standby as needed. Volumes and renal function were closely monitored. DVT prophylaxis provided. Renal parameters and electrolytes were closely monitor. Electrolytes corrected as needed. Creatinine initial -2.0; follow-up - 2.2. Unclear if it was acute kidney injury or chronic kidney disease. Patient got accepted to [facility] for right and left heart catheterization. Patient was transferred to [facility] via [facility]. FINAL DIAGNOSES: Hypertensive emergency Elevated troponin, likely due to myocardial necrosis associated with cardiomyopathy Acute systolic CHF due to cardiomyopathy Severe cardiomyopathy Marijuana user DISCHARGE MEDICATIONS: List of medication was sent with patient. DISCHARGE INSTRUCTIONS: Patient was transferred to [facility] via [facility] for left and right heart catheterization and further management. I have been assigned to dictate discharge summary for this account. I was not involved in the patient's management. Stella Carbajal NP Jan 25, 2019 14:45
== END 2019-01-24 21:25 | disposition critical access hospital, planned readmission (94) | DRG 190 ==
LOC: EMR 07:20 → EDBEDREQ 11:52 → 2E 12:02
DX: I21.4 Non-ST elevation (NSTEMI) myocardial infarction (principal); I50.21 Acute systolic (congestive) heart failure; I11.9 Hypertensive heart disease without heart failure; I43 Cardiomyopathy in diseases classified elsewhere; I25.10 Atherosclerotic heart disease of native coronary artery without angina pectoris; I11.0 Hypertensive heart disease with heart failure; I16.1 Hypertensive emergency; F12.10 Cannabis abuse, uncomplicated; I34.0 Nonrheumatic mitral (valve) insufficiency; I37.1 Nonrheumatic pulmonary valve insufficiency
CPT/HCPCS: 36415; 71045; 80048; 80053; 80307; 82550; 82553; 83690; 83880; 84484; 85025; 93005; 93306; 96374; 96375; 99291; J2405

== ENCOUNTER 2020-12-10 15:31 | Emergency (ER) | payer OTHER ==
[~2020-12-10] VITALS: Ht 177.8 cm; Wt 98.4 kg
[~2020-12-10 15:31] MED LIST: ASPIR 8181 MG ORAL; ATORVASTATIN CA20 MG ORAL; ATORVASTATIN CA40 MG ORAL; CARVEDILOL3.125 MG ORAL; CARVEDILOL6.25 MG ORAL; FUROSEMIDE20 M1 ORAL; FUROSEMIDE40 MG ORAL; LISINOPRIL20 MG ORAL; LISINOPRIL5 MG ORAL
[2020-12-10] MEDS ORDERED: HYDRALAZINE HC100 MG ORAL (15:49)
[2020-12-10] MEDS ORDERED: AMLODIPINE BESY10 MG ORAL (15:49)
--- NOTE | 2020-12-10 16:03 | Emergency Room Report ---
History of Present Illness General Chief Complaint: Hypertension Source: Patient Present Illness HPI Disclaimer: Please note that this report is being documented using [employer] technology. This can lead to erroneous entry secondary to incorrect interpretation by the dictating instrument. HPI: Is a 45-year-old male with a history of CHF, hypertension presenting for insomnia. The patient states he has had difficulty falling asleep and awakens from sleep frequently over the past 3 days. Notes he snores significantly. He wakes up with a "choking sensation" but is able to sleep during the day. Denies recent fever, chills, headache, chest pain, palpitations, shortness of breath. He reports elevated blood pressure readings at home but took Lasix prior to arrival. Also noted some swelling in the lower extremities 2 days ago but this resolved also with Lasix and increased urination. Has an appointment to see his PMD in 3 days. No prior sleep studies. Currently denies chest pain or any complaints. He is asking for prescription for sleep aid. PMH: CHF, hypertension PSH: Reviewed Allergies: Reviewed Social Hx: Reviewed Allergies: Coded Allergies: No Known Allergies (Unverified , 01/22/19) COVID-19 Screening Contact w/high risk pt: No Experienced COVID-19 symptoms?: No COVID-19 Testing performed COUNSELING DEPARTMENT CHAIR: No Nursing Documentation-PMH Past Medical History: No History, Except For Hx Cardiac Problems: Yes - CHF Hx Hypertension: Yes Hx Cancer: No Hx Gastrointestinal Problems: No Hx Neurological Problems: No Review of Systems All Other Systems: negative except mentioned in HPI Physical Exam Vital Signs Date Time Temp Pulse Resp B/P (MAP) Pulse Ox O2 Delivery O2 Flow Rate FiO2 12/10/20 15:42 97.5 118 17 173/120 (137) 96 Room Air General: Awake and alert, no acute distress, hypertensive HEENT: NC/AT. EOMI. Cardiovascular: Mild tachycardia. S1 and S2 normal. No murmur appreciated Resp: Normal work of breathing. No cough, wheezing or crackles appreciated Abdomen: Abdomen is soft, nondistended. Nontender Skin: Intact. No abrasions, laceration or rash over the exposed skin MSK: Normal tone and bulk. Moving all extremities. No obvious deformity. No lower extremity edema. Neuro: Awake and alert. Mentating appropriately. Medical Decision Making Diagnostic Impression: Primary Impression: Hypertension Additional Impressions: Sleep difficulties Elevated troponin CHF (congestive heart failure) ER Course 45-year-old male history of CHF presents for evaluation of sleep difficulties. Differential includes was not limited to acute CHF exacerbation, sleep apnea, ACS, arrhythmia, hypertensive urgency, hypertensive emergency, electrolyte abnormalities among others. Patient arrives tachycardic though states he drank a full coffee prior to arrival. He denies any chest pain or discomfort at this time and his main complaint is suddenly awaking with a choking sensation while trying to sleep for the past few days. EKG shows sinus rhythm with T wave abnormalities but largely unchanged from EKG from last year. Renal function somewhat impaired though at baseline for patient. His troponin is elevated. The patient states his troponin is constantly elevated. On his last admission he was transferred for cardiac catheterization which he states did not show any evidence of coronary artery disease. May have a chronically elevated troponin from his cardiomyopathy/CHF. I discussed admission with the patient though he declined. He will accept a dose of Lasix for his elevated BN peptide and hydralazine for his hypertension though at this time states he is asymptomatic is an appointment to follow-up with his PMD. I strongly urged him to speak with his PMD as soon as possible to determine further work-up as needed and to return to the ER should he change his mind regarding admission. He understands but stated he still wished to leave leave the hospital and follow-up on an outpatient basis at this time. Patient understands the risks of leaving the hospital. He is of sound mind and able to make his own decisions. Signed AMA paperwork and left the ER. Laboratory Tests Test 12/10/20 17:21 White Blood Count 6.2 K/UL (4.8-10.8) Red Blood Count 5.23 M/UL (4.70-6.10) Hemoglobin 15.8 G/DL (14.2-18.0) Hematocrit 49.2 % (42.0-52.0) Mean Corpuscular Volume 94 FL (80-99) Mean Corpuscular Hemoglobin 30.2 PG (27.0-31.0) Mean Corpuscular Hemoglobin Concent 32.1 G/DL (32.0-36.0) Red Cell Distribution Width 14.8 % (11.6-14.8) Platelet Count 282 K/UL (150-450) Mean Platelet Volume 6.5 FL (6.5-10.1) Neutrophils (%) (Auto) 52.4 % (45.0-75.0) Lymphocytes (%) (Auto) 36.1 % (20.0-45.0) Monocytes (%) (Auto) 7.1 % (1.0-10.0) Eosinophils (%) (Auto) 2.0 % (0.0-3.0) Basophils (%) (Auto) 2.5 % (0.0-2.0) H Sodium Level 139 MMOL/L (136-145) Potassium Level 4.8 MMOL/L (3.5-5.1) Chloride Level 104 MMOL/L (98-107) Carbon Dioxide Level 27 MMOL/L (21-32) Anion Gap 8 mmol/L (5-15) Blood Urea Nitrogen 24 mg/dL (7-18) H Creatinine 2.1 MG/DL (0.55-1.30) H Estimated Glomerular Filtration Rate 41.5 mL/min (>60) Glucose Level 108 MG/DL (74-106) H Calcium Level 8.9 MG/DL (8.5-10.1) Troponin I 0.297 ng/mL (0.000-0.056) Pro-B-Type Natriuretic Peptide 2399 pg/mL (0-125) H EKG Diagnostic Results Troponin ordered: Yes When was troponin ordered?: Dec 10, 2020 EKG Time: 16:05 Rate: tachycardiac Rhythm: NSR ST Segments: no acute changes Other Impression Sinus rhythm, normal axis, tachycardic rate, evidence of ventricular and atrial enlargement. No ST segment changes. T wave inversion similar to prior EKG on 01/22/2019. Rhythm Strip Diag. Results Rhythm Strip Time: 16:05 EP Interpretation: yes Rate: 120s Rhythm: NSR, no PVC's, no ectopy Chest X-Ray Diagnostic Results Chest X-Ray Diagnostic Results : Chest X-Ray Ordered: Yes # of Views/Limited/Complete: 1 View Indication: Shortness of Breath EP Interpretation: Yes Interpretation: no consolidation, no effusion, no pneumothorax, other - Cardiomegaly Impression: No acute disease Electronically Signed by: Electronically signed by Dr. Ever Loomis MD Last Vital Signs Date Time Temp Pulse Resp B/P (MAP) Pulse Ox O2 Delivery O2 Flow Rate FiO2 12/10/20 15:42 97.5 118 17 173/120 (137) 96 Room Air Disposition: AGAINST MEDICAL ADVICE Condition: Stable Ever Loomis MD Dec 10, 2020 16:03
[2020-12-10 16:05] VITALS: BP 164/130
--- NOTE | 2020-12-10 16:10 | NUR ---
ER nurses note: pt come to the ED from home report that he have HBP and he takes amlodipine 10mg and Hydralizine 100mg, last time he took them was around 2000 last night. Pt denies any pain or SOB at this time. pt stable under his conditiom, will continue monitoring for any change in condition.
[2020-12-10 17:22] VITALS: BP 150/132
[2020-12-10 17:41] LABS: CALCIUM 8.9 MG/DL (8.5-10.1); CREATININE 2.1 MG/DL (0.55-1.30); POTASSIUM 4.8 MMOL/L (3.5-5.1)
[2020-12-10 17:42] LABS: BASOPHILS % (AUTO) 2.5 % (0.0-2.0); HEMATOCRIT 49.2 % (42.0-52.0); HEMOGLOBIN 15.8 G/DL (14.2-18.0); LYMPHOCYTES % (AUTO) 36.1 % (20.0-45.0); MEAN CORPUSCULAR VOLUME 94 FL (80-99); MONOCYTES % (AUTO) 7.1 % (1.0-10.0); NEUTROPHILS % (AUTO) 52.4 % (45.0-75.0); PLATELET COUNT 282 K/UL (150-450); RED BLOOD COUNT 5.23 M/UL (4.70-6.10); RED CELL DISTRIBUTION WIDTH 14.8 % (11.6-14.8); WHITE BLOOD COUNT 6.2 K/UL (4.8-10.8)
[2020-12-10 18:53] VITALS: BP 150/124
--- NOTE | 2020-12-10 19:02 | Diagnostic Imaging Report ---
Indication: Shortness of breath Technique: One view of the chest Comparison: 01/22/2019 Findings: The heart is enlarged. The lungs and pleural spaces are clear. Impression: Cardiomegaly. No acute process
== END 2020-12-10 19:01 | disposition left against medical advice (07) ==
LOC: EMR 17:36
DX: G47.00 Insomnia, unspecified (principal); I10 Essential (primary) hypertension; R79.89 Other specified abnormal findings of blood chemistry; I11.0 Hypertensive heart disease with heart failure; I50.9 Heart failure, unspecified; R00.0 Tachycardia, unspecified
CPT/HCPCS: 36415; 71045; 80048; 83880; 84484; 85025; 93005; 96374; 96375; J0360; J1940; Z7502; 99284